=== PATIENT | male | born 1935 | race Caucasian/White ===

== ENCOUNTER 2023-09-10 08:15 | Inpatient (IN) | payer MEDICARE, BC, SELFPAY ==
[2023-09-10] VITALS (23 sets, daily range): BP systolic 25–150; BP diastolic 60–114; BMI 25.6
--- NOTE | 2023-09-10 08:57 | HPS.HSE ---
Addendum entered and electronically signed by Aneta Ventura MD 09/10/23 09:26:
ROS:
patient denies headache, chest pain, shortness of breath. He only complains of mild soreness right groin. No lightheadedness or dizziness. No nausea/vomiting/diarrhea.
Addendum entered and electronically signed by Aneta Ventura MD 09/10/23 09:22:
Constipation
-will treat and order bowel regimen when patient is off bed rest
Original Note:
Family Physician
-
Family Physician: INTERVIEWE UNKNOWN - PT NOT
Chief Complaint
-
transferred from [place] for Pseudoaneurysm
History of Present Illness
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
for further care.
AT [place] patient had PPM placement 09/07/23. When large sheath removed noticed arterial bleeding s/p prolonged compression then C clamp. Ultrasound performed showing large pseudoaneurysm of RFA. IR attempted to close with thrombin injection
but patient had complication of vasovagal event, loss of pulse requiring one minute of CPR. Patient woke up without neurological deficits.
Follow up US on 09/08 showed:
Partial thrombosis of known pseudoaneurysm of the right common femoral artery with residual pseudoaneurysm measuring approximately 1.2 x 0.8 x 0.6 cm compared to approximately 2.0 x 1.2 x 1.6 cm on prior arterial Doppler of September 08, 2023.
Pseudoaneurysm neck measures approximately 0.5cm. Approximately 4.1 x 2.0 x 4.3 cm a complex hematoma along the anterior aspect of pseudoaneurysm.
Post vasovagal event patient had echo: 'Limited study performed for evaluation of pericardial effusion. Examination does not reveal any evidence for significant pericardial effusion.
His Losartan, Atenolol, Eliquis have been held
Labs this AM:
WBC 7.9
Hg 11
PLT 128
INR 1.21
Na 137
K+ 4.4
Cl 105
BUN 28
Cr 1.15
GFT 1.15
Medical History
Past Medical History
Past Medical History: Reports Other ([place], Gout, Afib, sick sinus syndrome now s/p leadless PPM )
Past Surgical History: Reports Other (s/p PPM 09/07/23)
Social History
Tobacco: Former Smoker
Alcohol: Occasional
Family History
Family History: Not pertinent
Allergies / Home Medications
Allergies reflects when Allergies were last updated in [facility].
Home Medications with original date entered in [facility]
Allergy/Medication List:
Allergies
Allergy/AdvReac Type Severity Reaction Status Date / Time
Quinolones Allergy Achilles Verified 09/10/23 08:54
tendonitis
Home Medications
apixaban 5 mg tablet (Eliquis) 5 mg PO BID 09/10/23
atenolol 25 mg tablet 25 mg PO DAILY 09/10/23
famotidine 20 mg tablet (Pepcid AC) 40 mg PO HS 09/10/23
febuxostat 40 mg tablet (Uloric) 40 mg PO HS 09/10/23
hydrochlorothiazide 12.5 mg capsule 6.25 mg PO DAILY 09/10/23
levothyroxine 112 mcg tablet (Synthroid) 112 mcg PO DAILY 09/10/23
losartan 25 mg tablet 25 mg PO DAILY 09/10/23
omeprazole 20 mg capsule,delayed release 20 mg PO DAILY 09/10/23
Review of Systems
-
History Source: Patient
A 12 point ROS was completed and negative except as noted: Yes
Physical Exam
Vital Signs
Vital Signs
Temp Pulse Resp BP Pulse Ox
97.9 F 68 18 150/61 100
09/10/23 08:15 09/10/23 08:30 09/10/23 08:15 09/10/23 08:09 09/10/23 08:15
Physical Exam
General: No Apparent Distress and Conversant
HEENT: PERRLA
Respiratory: Clear; No Wheezes
Cardiac: S1/S2 and Regular Rhythm
GI: Soft and Non Tender
Musculoskeletal: No Edema and Other (right groin hematoma, swelling, no significant tenderness; PT pulse 2+ RLE)
Skin: Warm and Dry; No Rash
Neuro: AO x 3
Psych: Calm
Laboratory Results
-
see HPI
Data Reviewed
-
Diagnostic Radiology: Report Reviewed by me
Lab Data: Labs Reviewed by me
Impression/Plan
-
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
for further care.
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
-direct admit to IVU
-Dr. Conway aware of admission; ordered CT Angio Abdomen/Pelvis with runoff (confirmed order with CT)
-NPO
-hold ROUTE SALES TRAINEE Eliquis
Sick sinus syndrome s/p PPM 09/07/23
Atrial Fibrillation
-monitor in IVU on telemetry
-resume b-gil when OK with cardiology
-holding Eliquis
HTN
-hold ROUTE SALES TRAINEE Losartan and HCTZ for now
hx right Nephrectomy for RCC
CKD stage IIIa
-small bolus pre contrast
-running IVF
GERD
-daily PPI, qhs pepcid
Gout
-ROUTE SALES TRAINEE Febuxostat
DVT PPx - SCD
FULL CODE - confirmed on admission
--- NOTE | 2023-09-10 09:00 | PTCARENOTE ---
Rec'd pt [id number] as a transfer from [facility] s/p Leadless pacemaker placement last , 09/07/23. According to transfer records pt developed a pseudoaneurysm at the insertion site in the R groin. Pt transferred by staff from
stretcher to bed, as pt is bedrest at this time. Pt w/no c/o CP or SOB. Pt did report 2/10 R groin 'tenderness' & 2/10 neck & back pain, which pt reports as chronic for him. VS stable w/HR in the 60's-70's w/admission BP of 150/61. Pt is SR w/freq
PVC's incl bigeminy & occas V pacing on telemetry monitoring. Hospitalist, Dr Ventuar & Vascular surgeon, Dr Conway in to see pt. 250mL NSS IVF bolus administered as ordered & NSS IVF hung as ordered through patent R FA IV line. Pt transported to
urgent CT scan by transport. Report then given to Shameka in the Vascular OR. This RN down to CT scan to assist transport to Vascular OR & bring chart. Plan of care ongoing.
[2023-09-10] MEDS: NSS 250 IV (09:15)
[2023-09-10] MEDS: NSS (PRESERVATIVE FREE) 10 ML IV (09:16)
[2023-09-10] MEDS: PROTONIX IV 40 MG IV (09:16)
[2023-09-10] MEDS: NSS 1000 IV ×2 (09:35→13:33)
--- NOTE | 2023-09-10 10:02 | W.PN.VS ---
Today's Communication / Plan
-
cta
OR
Assessment/Plan
-
right femoral pseudoaneurysm
- cta to confirm location and injury
- plan for OR for repair
- discussed with patient
Subjective Data
-
Date of Service: September 10, 2023
Patient transferred from [place] with Right groin pseudoaneurysm
Injected with thrombin x2 without success
pain in right groin
occurred after leadless pacemaker placement
Objective Data
-
Vital Signs
Temp Pulse Resp BP Pulse Ox
97.9 F 68 18 150/61 100
09/10/23 08:15 09/10/23 08:30 09/10/23 08:15 09/10/23 08:09 09/10/23 08:15
Lab Results
09/10/23 08:31
09/10/23 08:31
Calcium Cancelled 09/10/23 08:31
Magnesium Cancelled 09/10/23 08:31
Physical Exam
-
rrr
ctab
nt,nd,soft
eccymosis right groin
slight tenderness
+ PT pulse
--- NOTE | 2023-09-10 11:30 | CON.INTV ---
Consultation
Consultation Request
Date/Time Consultation Requested: 09-10-23
Date/Time Consultation Performed: 09-10-23
Requesting Provider: Dr Conway
Performing Provider: Dr Wong
Reason for Consultation: s/p repair of R femoral pseudoaneurysm
Medical History
-
Chief Complaint: incisional pain at RLE
History of Present Illness:
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
Seen by Dr Be ([facility] Sx), candidate for vascular repair
Seen at ICU, s/p R femoral vein patch angioplasty, repair of R SFA with primary anastomosis
Mild postop hypotension with MAP 69, mild nausea but no vomit
Dgtr Dr Vann at bedside
Past Medical History
Past Medical History: Other (see A&P for PMH/PSH)
Social History
Tobacco: Former Smoker
Alcohol: Occasional
Drug: None
Personal: Single
Living: With Roomate ([facility])
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
Family History
Family History: Reviewed & Not Pertinent
Allergies / Home Medications
Allergies
Allergy/AdvReac Type Severity Reaction Status Date / Time
Quinolones Allergy Achilles Verified 09/10/23 08:54
tendonitis
Home Medications
�Medication �Instructions �Recorded �Confirmed �Last Taken �Type
apixaban 5 mg tablet (Eliquis) 5 mg PO BID 09/10/23 09/10/23 09/05/23 History
atenolol 25 mg tablet 25 mg PO DAILY 09/10/23 09/10/23 Unknown History
famotidine 20 mg tablet (Pepcid AC) 40 mg PO HS 09/10/23 09/10/23 Unknown History
febuxostat 40 mg tablet (Uloric) 40 mg PO HS 09/10/23 09/10/23 Unknown History
hydrochlorothiazide 12.5 mg capsule 6.25 mg PO DAILY 09/10/23 09/10/23 Unknown History
levothyroxine 112 mcg tablet 112 mcg PO DAILY 09/10/23 09/10/23 Unknown History
(Synthroid)
losartan 25 mg tablet 25 mg PO DAILY 09/10/23 09/10/23 Unknown History
omeprazole 20 mg capsule,delayed 10 mg PO DAILY 09/10/23 09/10/23 Unknown History
release
Review of Systems
-
History Source: Patient
All other systems: Negative unless noted
Constitutional: Fatigue
Cardiac: Other (incisional R groin pain)
Abdomen/GI: Nausea
Neuro: Weakness
Vitals / Labs / Diagnostic Testing
Vital Signs
Temp Pulse Resp BP Pulse Ox
97.9 F 66 18 150/61 100
09/10/23 08:15 09/10/23 10:00 09/10/23 08:15 09/10/23 08:09 09/10/23 08:15
Diagnostic Testing:
Physical Exam
-
HEENT: Normocephalic and Other (somewhat dry oral mucos)
Cardiovascular: Regular Rhythm, Peripheral Edema (n) and JVD (n)
Respiratory: Clear and Non-Labored Respirations
GI: Soft, Non Distended and Non Tender
Neurology: Awake, AO x 3 and No Motor Deficits
Skin: Warm
General: Respiratory Distress (n)
Assessment
-
Assessment:
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 Seen by
[place] ([facility] Sx), taken to OR upon transfer
Impression:
R femoral hematoma and pseudoaneurysm post leadless PPM placement at OSH 05-16
S/p R femoral vein patch angioplasty, repair of R SFA with primary anastomosis
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
HTN
Gout
RCC s/p R nephrectomy
CKD
AFib on apixaban
SSS s/p leadless PPM at OSH 05-16, complicated by hematoma and pseudoaneurysm at R femoral artery
Hypothyroidism
GERD
Remote h/o smoking
Plan:
Postoperative surgical intensive care unit monitoring
Supplemental oxygen as needed
Incentive spirometry
Aspiration precautions
Neuro and vascular checks per protocol
Vascular surgery following-correspondence and operative notes reviewed
ASA, clopidogrel
Mild hypotension upon transfer to ICU, MAP 69
NSS 500 mL IV bolus ordered, will follow response
Continue L-thyroxine
Resume apixaban once OK by Vasc Sx
DVT prophylaxis
Early nutrition
Early mobilization
D/w Dr Ho and his kind daughter Dr Ata Vann ( of Dr Dave Vann)
TT Dr Vann with update
Critical care time: 35 min
[2023-09-10 12:03] LABS: Hematocrit 30.8 % (39.0-52.0); Hemoglobin 10.7 g/dL (13.0-18.0); Mean Corp Hgb Conc. 34.7 g/dL (33.0-37.0); Mean Corpuscular Hgb 29.5 pg (27.0-31.0); Mean Corpuscular Volume 84.8 fL (80.0-94.0); Mean Platelet Volume 11.1 fL (7.4-10.4); Platelet Count 148 10^3/uL (130-400); Red Blood Cell Count 3.63 10^6/uL (4.70-6.10); Red Cell Dist. Width 14.7 % (11.5-14.5); White Blood Cell Count 9.7 10^3/uL (4.8-10.8)
[2023-09-10 12:14] LABS: ALT (SGPT) 16 U/L (0-50); AST (SGOT) 28 U/L (17-59); Alkaline Phosphatase 63 U/L (38-126); Blood Urea Nitrogen 25 mg/dl (9-20); Calcium 8.6 mg/dl (8.4-10.2); Carbon Dioxide 22 mmol/L (22-30); Chloride 108 mmol/L (98-107); Estimated Creatinine Clearance 49 ml/min; Glucose 97 mg/dl (70-99); Potassium 4.2 mmol/L (3.5-5.1); Sodium 137 mmol/L (135-145); Total Bilirubin 0.6 mg/dl (0.2-1.3); Total Protein 5.8 g/dl (6.3-8.2); eGFR > 60.00
--- NOTE | 2023-09-10 12:35 | W.IMMPOSTOP ---
Surgical Immed Post Op Note
-
Primary Surgeon: jessica
Assisting Surgeon: none
Pre-op Diagnosis: r femoral pseudoaneurysm
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
Procedure Performed: r Femoral vein patch angioplasty, repair of R SFA with primary anastamosis
Anesthesia Type: GET
Specimen / Cultures: none
Estimated Blood Loss: 450 ml
Complications: none
Operative Findings: excellent PT and popliteal signal
--- NOTE | 2023-09-10 12:38 | PTCARENOTE ---
Pt to be transferred to ICU post-op. Belongings transferred to room 3363.
--- NOTE | 2023-09-10 12:50 | SUR.PHASEI ---
Received pt from Vascular OR, drowsy but easily arouses to verbal. VPACED in the 60's with occasional PVC's. Sating 100% on 6L Simple mask. Lungs CTA. Abdomen soft. Vascular RN Jazmine at bedside and R groin swollen, soft to palpate and was told
this is how he was pre op and Dr. Conway aware. R groin ASHOK dressing intact and monitor flashing green. R groin EVI drain emptied for dark blood 15ml. R pedal pulse palpable. Sensation intact. L 20 forearm INT intact with normal saline running
through it. L 18 hand flushed and capped. Pt updated with plan of care. Will continue to monitor
--- NOTE | 2023-09-10 14:07 | CON.CAR ---
Consultation
Consultation Request
Date/Time Consultation Requested: September 10, 2023
Date/Time Consultation Performed: September 10, 2023
Requesting Provider: Hospitalist
Performing Provider: Cruz
Reason for Consultation: Sick sinus syndrome A-fib
Medical History
-
Chief Complaint: Transferred from hospital
History of Present Illness:
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
was transferred to [facility] for further care. The majority of this history was obtained through chart review and speaking with other physicians. He had been at [facility] where leadless permanent pacemaker was implanted on
September 07, 2023. When the sheath was removed there was noted to be arterial bleeding and had prolonged compression with the C-clamp. Ultrasound then was performed which showed a large pseudoaneurysm of his RFA. IR attempted to close with a thrombin
injection but he then had vasovagal event with loss of pulse requiring 1 minute of CPR. He awoke without any significant neurological deficits. Follow-up ultrasound showe: partial thrombosis of known pseudoaneurysm of the right common femoral
artery with residual pseudoaneurysm measuring approximately 1.2 x 0.8 x 0.6 cm compared to approximately 2.0 x 1.2 x 1.6 cm on prior arterial Doppler of September 08, 2023. Pseudoaneurysm neck measures approximately 0.5cm. Approximately 4.1 x 2.0 x 4.3
cm a complex hematoma along the anterior aspect of pseudoaneurysm.
He was transferred to [facility] for further management.
Past Medical History
Past Medical History: Other (hypertension, gout, A-fib, sick sinus syndrome status post leadless pacemaker)
Past Surgical History: Other (Right nephrectomy)
Social History
Tobacco: Former Smoker
Alcohol: Occasional
Employment: Employed
Family History
Family History: Reviewed & Not Pertinent
Allergies / Home Medications
Allergy/AdvReac Type Severity Reaction Status Date / Time
Quinolones Allergy Achilles Verified 09/10/23 08:54
tendonitis
�Medication �Instructions �Recorded �Confirmed �Type
apixaban 5 mg tablet (Eliquis) 5 mg PO BID 09/10/23 09/10/23 History
atenolol 25 mg tablet 25 mg PO DAILY 09/10/23 09/10/23 History
famotidine 20 mg tablet (Pepcid AC) 40 mg PO HS 09/10/23 09/10/23 History
febuxostat 40 mg tablet (Uloric) 40 mg PO HS 09/10/23 09/10/23 History
hydrochlorothiazide 12.5 mg capsule 6.25 mg PO DAILY 09/10/23 09/10/23 History
levothyroxine 112 mcg tablet 112 mcg PO DAILY 09/10/23 09/10/23 History
(Synthroid)
losartan 25 mg tablet 25 mg PO DAILY 09/10/23 09/10/23 History
omeprazole 20 mg capsule,delayed 10 mg PO DAILY 09/10/23 09/10/23 History
release
Review of Systems
-
All other systems: Negative unless noted
Physical Exam
Vital Signs
Temp Pulse Resp BP Pulse Ox
97.4 F 60 12 95/69 98
09/10/23 12:45 09/10/23 13:45 09/10/23 13:45 09/10/23 13:45 09/10/23 13:45
Lab Results
09/10/23 11:30
09/10/23 11:30
Physical Exam
General: Well Developed and Well Nourished
HEENT: Normocephalic
Respiratory: Clear and Non Labored Respirations
Cardiac: S1/S2 and Other (no m/r/g)
GI: Soft
Musculoskeletal: No Edema
Skin: Dry
Neuro: Awake, Alert and Oriented
Psych: Calm
Impression / Plan
-
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
was transferred to [facility] for further care. He is now status post right femoral vein patch angioplasty and repair of right superficial femoral artery primary anastomosis.
Pseudoaneurysm status post repair
-Per vascular surgery
-Currently holding Eliquis
Sick sinus syndrome status post pacemaker September 06 and AF
-Holding Eliquis
-Holding atenolol for now given low blood pressure likely reinstate tomorrow
Hypertension
-Hold losartan and HCTZ
CKD stage III AA
History of right nephrectomy
GERD
Gout
Data Reviewed
-
EKG: Tracing Personally Visualized and interpreted (Paced rhythm)
Labs: Labs Reviewed by me
[2023-09-10] MEDS: SYNTHROID 112 MCG PO (16:00)
--- NOTE | 2023-09-10 16:40 | PTCARENOTE ---
pt arrived from PACU at 1400 , awake and alert , V Paced on monitor , BP 91/60 , on 2L NC with sat 100% , R groin picco dressing intact , R DP pulse is palpable , pt R foot pink and warm , R groin hematoma soft and movable , area marked , at 1430 pt
co feeling lightheaded , his blood pressure dropped to 77/56, Dr Wong notified and pt was given a 500ml NSS blolus , his BP up to 109 after NSS given , pt is now up in bed and eating clear liquid dinner, pt daughter and son in law at bedside ,
plan for repeat HH at 1800 , minimal to no complaints of surgical pain
[2023-09-10 18:35] LABS: Hematocrit 31.7 % (39.0-52.0); Hemoglobin 10.6 g/dL (13.0-18.0)
[2023-09-10] MEDS: PEPCID 20 MG PO (21:58)
[2023-09-10] MEDS: MAALOX 30 ML PO (23:34)
[2023-09-11] VITALS (19 sets, daily range): BP systolic 85–141; BP diastolic 61–103; BMI 25.7
[2023-09-11] MEDS: NSS 1000 IV (00:07)
[2023-09-11 04:50] LABS: % Basophils 0.2 % (0-2); % Eosinophils 0.2 % (0-6); % Immature Granulocytes 0.7 % (0-0.5); % Lymphocytes 15.8 % (20.5-51.1); % Monocytes 7.9 % (1.7-9.3); % Neutrophils 75.2 % (42.2-75.2); Absolute Immature Granulocytes 0.1 10^3/uL (0-0.05); Absolute Lymphocytes 2.1 10^3/uL (1.2-3.4); Absolute Neutrophils 9.9 10^3/uL (1.4-6.5); Hematocrit 30.6 % (39.0-52.0); Hemoglobin 10.1 g/dL (13.0-18.0); Mean Corpuscular Hgb 29.4 pg (27.0-31.0); Nucleated Red Blood Cells % 0 % (-); Platelet Count 155 10^3/uL (130-400); Red Blood Cell Count 3.44 10^6/uL (4.70-6.10); Red Cell Dist. Width 14.6 % (11.5-14.5); White Blood Cell Count 13.2 10^3/uL (4.8-10.8)
[2023-09-11 05:04] LABS: APTT 36.8 Sec (23.4-35.0); INR 1.25; PT 15.6 Sec (11.4-14.6)
[2023-09-11 05:17] LABS: Blood Urea Nitrogen 23 mg/dl (9-20); Calcium 8.5 mg/dl (8.4-10.2); Carbon Dioxide 23 mmol/L (22-30); Chloride 106 mmol/L (98-107); Estimated Creatinine Clearance 49 ml/min; Glucose 103 mg/dl (70-99); Magnesium 1.9 mg/dl (1.6-2.3); Potassium 4.9 mmol/L (3.5-5.1); Sodium 137 mmol/L (135-145); eGFR > 60.00
--- NOTE | 2023-09-11 05:19 | PTCARENOTE ---
09/10/23 - received pt from dayshift RN, assessments completed at bedside together. foot cool to touch, positive pedal pulses, groin bruised, edema noted to R upper thigh, no c/o pain, alix dressing running, scant serous drainage at dressing site,
EVI drain has serous drainage,
patient is on clear liquid diet, no issues swallowing, q1 hr vascular checks completed throughout shift, no further needs, all personal belongings with in reach at all times.
09/11/23 - patient remains pain free throughout shift, did request PRN mylanta, patient is now voiding in urinal with out issue, pulses remain palpable, skin still cool but getting warmer to touch, patient remainss on RA at 100%, no increased area
of edema / firmness to R thigh, no increased drainage on dressing to groin,
swellling noted to testicles, elevated in pillowcase sling,
no further needs at this time.
[2023-09-11] MEDS: SYNTHROID 112 MCG PO (05:31)
[2023-09-11] MEDS: MAALOX 30 ML PO (07:04)
--- NOTE | 2023-09-11 07:13 | W.PN.INTV ---
Addendum entered and electronically signed by Sigrid Gama DO 09/11/23 13:05:
Transfer placed to tele
We will sign off at this time, please call with questions
Original Note:
Today's Communication / Plan
Recommendations
Doing well postop, pain control
Monitor of RLE swelling, continue neurovasc checks
PT/OOB
Diet advanced, tolerating
Continue further postop management per team
Can likely transition to tele if ok with surgical service
Assessment
-
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 Seen by Dr
Zoraida ([facility] Sx), taken to OR upon transfer
Impression:
R femoral hematoma and pseudoaneurysm post leadless PPM placement at OSH 05-16
S/p R femoral vein patch angioplasty, repair of R SFA with primary anastomosis 09/10/23
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
HTN
Gout
RCC s/p R nephrectomy
CKD
AFib on apixaban
SSS s/p leadless PPM at OSH 05-16, complicated by hematoma and pseudoaneurysm at R femoral artery
Hypothyroidism
GERD
Remote h/o smoking
Plan
Postoperative surgical intensive care unit monitoring
Supplemental oxygen as needed
Incentive spirometry
Aspiration precautions
Neuro and vascular checks per protocol
RLE thigh swelling
Vascular surgery following-correspondence and operative notes reviewed
ASA, clopidogrel
Mild hypotension upon transfer to ICU, MAP 69
NSS 500 mL IV bolus ordered, will follow response
Off pressors
Continue L-thyroxine
Resume apixaban once OK by Vasc Sx
DVT prophylaxis
Early nutrition
Early mobilization, PT/siting in chair
D/w Dr Ho and his kind daughter Dr Ata Vann ( of Dr Dave Vann)
TT Dr Vann with update
Diagnostic Data
Chest X-Ray:
CT Scan: AP 09/10/23- Pseudoaneurysm arising anteriorly from the proximal right femoral artery. 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
Echo:
PFT's:
Reports and relevant images were personally reviewed.
-----
Critical care time 35 mins -- this includes review of history, physical exam, medications, hemodynamic/ventilator parameters, laboratory data, imaging and discussion with house staff, pharmacy, respiratory therapy, hospital internship, and nursing.
Subjective Dataa
Subjective Data
Date of Service:
Date of Service: September 11, 2023
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
Subjective:
Doing well this AM, no pain complaints
RLE swelling noted
Sitting in chair, no SOB/chest pain
Objective Data
Data Reviewed
Vital Signs / I&O / Oxygen:
Vital Signs
Temp Pulse Resp BP Pulse Ox
98.1 F 69 16 118/83 99
09/11/23 03:30 09/11/23 05:15 09/11/23 05:15 09/11/23 04:00 09/11/23 05:15
Intake and Output
09/10/23 09/11/23 09/12/23
06:59 06:59 06:59
Intake Total 2630 / 2630
Output Total 1325 / 1325
Balance 1305 / 1305
SaO2 99
Nasal Cannula flow liters per 2
minute
Physical Exam
General: Comfortable and Other (NAD)
HEENT: Normocephalic, Anicteric and Moist Mucous Membranes
Cardiovascular: S1-S2, Regular Rhythm and Peripheral Edema (RLE thigh, scrotum)
Respiratory: Clear and Non-Labored Respirations
GI: Soft, Non Distended and Non Tender
Neurology: Awake, Alert, Oriented, AO x 3 and No Motor Deficits
Skin: Warm and Dry
Labs/Micro/Reports
Lab Data
09/11/23 04:35
09/11/23 04:35
Laboratory Results
09/11/23
04:35
PT 15.6 H
INR 1.25
APTT 36.8 H
--- NOTE | 2023-09-11 08:05 | W.PN.CD ---
Today's Communication / Plan
-
Hold atenolol
Hold losartan HCT
Will get ppm interrogated today
Impression / Plan
-
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
was transferred to [facility] for further care. He is now status post right femoral vein patch angioplasty and repair of right superficial femoral artery primary anastomosis.
Pseudoaneurysm status post repair
-Per vascular surgery re when drain comes out and when he may ambulate
-Currently holding Eliquis- resume once vascular surgery allows
- Hgb 10.1 today- stable
Sick sinus syndrome status post pacemaker September 06 and AF
-Holding Eliquis
-Holding atenolol for now - HR in 60s-70s (SR with freq APDs). BP still soft with some readings in 90/60 range. Will resume atenolol once BP allows but not today
- Have asked [facility] to interrogate his PPM today
Hypertension
-Hold losartan and HCTZ
CKD stage III AA
History of right nephrectomy
GERD
Gout
Physical Exam
Vital Signs/Labs
Vital Signs
Temp Pulse Resp BP Pulse Ox
98.1 F 69 16 118/83 99
09/11/23 03:30 09/11/23 05:15 09/11/23 05:15 09/11/23 04:00 09/11/23 05:15
09/10/23 09/11/23 09/12/23
06:59 06:59 06:59
Actual Weight 164 lb 0.383 oz
09/11/23 04:35
09/11/23 04:35
PT 15.6 Sec (11.4-14.6) H 09/11/23 04:35
INR 1.25 09/11/23 04:35
APTT 36.8 Sec (23.4-35.0) H 09/11/23 04:35
Magnesium 1.9 mg/dl (1.6-2.3) 09/11/23 04:35
Physical Exam
Constitutional: No acute distress and Comfortable
EENT: Anicteric
Cardiovascular: Rhythm & rate is regular, Systolic murmur present and S1S2 is normal
Respiratory: Rhonchi Absent
GI: Soft and Non tender
Neuro/Psych: Motor deficits absent
Data Reviewed
-
Date of Service: September 11, 2023
[2023-09-11] MEDS: PLAVIX 75 MG PO (08:09)
[2023-09-11] MEDS: PROTONIX 40 MG PO (08:10)
--- NOTE | 2023-09-11 08:53 | PTCARENOTE ---
Addendum entered by Dorothy Duvall RN 09/11/23 09:19:
prior shift vitals captured. unable to verify accuracy
Addendum entered by Dorothy Duvall RN 09/11/23 09:09:
with leg dependent feet are darker red, refill slower but pulses unchanged
Original Note:
report received, assessments per work list. patient alert and oriented. denies pain. right groin alix dressing in place, area surrounding ecchymotic and soft. soft swelling noted not exceeding area previously marked. alix in place. weak pedal pulses
noted, confirmed with doppler. right foot warmer than left. montor nsr, occasional ventricular pacing with prolonged QT. vascular PAC in to assess. reviewed plan of care. patient assisted to chair. call agosto in reach.
--- NOTE | 2023-09-11 09:11 | W.PN.VS ---
Addendum entered and electronically signed by Chuy Rice III, MD 09/11/23 14:49:
This patient was seen and examined with Aneta Cote PA-C. I agree with the history and physical exam as well as the assessment and plan. I have the following additions:
Doing well overall
Some discomfort at the right groin incision
Ashok dressing intact, right groin
Drain is sanguinous in appearance but low volume
Continue PT/out of bed
Hold anticoagulation for now
Monitor drain output
Call with questions or concerns
Signed:
Chuy Rice III, MD
[facility]
[phone] ([phone])
Original Note:
Today's Communication / Plan
-
- Continue neurovascular checks
- Continue ASHOK dressing
- Monitor EVI output
- Continue to hold eliquis, may resume tomorrow
- D/C IVF
- ADAT
- OOB, PT/OT
- Okay to transfer to 2S
Assessment/Plan
-
88 year old male with R SFA transection with venous fistula following pacemaker placement s/p R femoral vein patch angioplasty, repair of R SFA with primary anastomosis POD1
- Continue neurovascular checks
- Continue ASHOK dressing
- Monitor EVI output
- Continue to hold eliquis, may resume tomorrow
- D/C IVF
- ADAT
- OOB, PT/OT
- Okay to transfer to 2S
Subjective Data
-
Date of Service: September 11, 2023
No acute events overnight. Reports minimal incisional pain. No right foot pain.
Objective Data
-
Vital Signs
Temp Pulse Resp BP Pulse Ox
98.1 F 69 16 118/83 99
09/11/23 03:30 09/11/23 05:15 09/11/23 05:15 09/11/23 04:00 09/11/23 05:15
Intake and Output
09/10/23 09/11/23 09/12/23
06:59 06:59 06:59
Intake Total 2630 / 2710 160 / 160
Output Total 1325 / 1675 550 / 550
Balance 1305 / 1035 -390 / -390
Intake:
Oral fluids 750 / 750
IV fluids (Total) 1380 / 1460 160 / 160
Nss 1,000 ml @ 80 mls/hr IV . 160 / 160
[id number] MARCELINO Rx#:[id number]
normal saline 1380 / 1380
IV piggybacks 500 / 500
Output:
Drain Output (Total) 75 / 75
Right Eleuterio-Rivera 75 / 75
Urine, Voided 750 / 1100 550 / 550
Straight cath output 500 / 500
Lab Results
09/11/23 04:35
09/11/23 04:35
Calcium 8.5 mg/dl (8.4-10.2) 09/11/23 04:35
Magnesium 1.9 mg/dl (1.6-2.3) 09/11/23 04:35
Total Bilirubin 0.6 mg/dl (0.2-1.3) 09/10/23 11:30
AST 28 U/L (17-59) 09/10/23 11:30
ALT 16 U/L (0-50) 09/10/23 11:30
Alkaline Phosphatase 63 U/L (38-126) 09/10/23 11:30
Total Protein 5.8 g/dl (6.3-8.2) L 09/10/23 11:30
Albumin 3.0 g/dl (3.5-5.0) L 09/10/23 11:30
Physical Exam
-
Awake, alert, NAD
Regular rate and rhythm
Nonlabored respirations
Right groin with ASHOK dressing intact. No hematoma.
EVI with serosanguinous output - 75cc/ 24h
Right foot warm, pink, well perfused, sensorimotor intact.
+R DP/PT signals. +L DP/PT signals.
--- NOTE | 2023-09-11 11:12 | CM ---
CM following re: discharge planning.
Discussed in Rounds, reviewed pt's chart, met with pt and spoke to pt's son in law.
Pt is an 88 year old male, admitted with primary dx of POD # 1 s/p Right Femoral vein patch angioplasty, repair of R SFA with primary anastomosis.
Pt reports he lives with SO in a 2SH, 2 steps to enter, has 3 supportive children. 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 Pt stated his daughter lives in [facility] and he is planking to stay
with her for a few days upon the discharge.
CM spoke to pt's daughter Ata [phone] and son in Law and both stated that pt's sig other is not in well health and the pt used to help her. per daughter, she does not it feasible for the pt to continue care for his SO. Pt's daughter stated
she feels that pt should go to a SNF for a short term rehab and CM explained that the pt needs to have skilled needs and it will be based on PT/OT evaluations and recommendations.
Pt's daughter stated that both pt and his SO have [facility] care insurance and CM explained the process to initiate services under guest relations manager care insurance policy.
PT and OT evaluations requested.
PCP: pt stated his friend is his PCP.
D/C plan: per daughter, pt will need a short term rehab. A list of SNFs provided. Awaiting for PT/OT evaluations.
CM will follow with discharge plan updates as hospitalization progresses
[2023-09-11] MEDS: COLACE 100 MG PO ×2 (11:54→20:23)
--- NOTE | 2023-09-11 12:21 | PTCARENOTE ---
patient reassessed. assisted to bathroom with rolling walker. passing flatus, no stool. patient requested Colace. hospitalist updated. orders received. vascular rounding. awaiting orders
--- NOTE | 2023-09-11 12:39 | W.PN.HOSP.TC ---
Today's Communication/Plan
-
Monitor vital signs and see plan
Continue monitor drain output
Resume Eliquis when okay with vascular surgery
Okay to transfer to 2 S per vascular
monitor leukocytosis
on asa and plavix
Assessment / Plan
Assessment / Plan
General: No Apparent Distress and Conversant
HEENT: PERRLA
Respiratory: Clear; No Wheezes
Cardiac: S1/S2 and Regular Rhythm
GI: Soft and Non Tender
Musculoskeletal: No Edema and Other (right groin drain)
Neuro: AO x 3
Psych: Calm
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
overnight came to ICU post OP for monitoring. Doing well post OP. Per vascular surgery okay to transfer to
-Vascular surgery following. Status post right SFA transection with venous fistula. Drain per vascular surgery
-hold OCEAN CLAM BOAT CAPTAIN Eliquis until ok with vascular
Sick sinus syndrome s/p PPM 09/07/23
Atrial Fibrillation
-resume b-gil when OK with cardiology
-holding Eliquis
Suspect anemia 2/2 acute blood loss from pseudoaneurysm
monitor
HTN
-hold OCEAN CLAM BOAT CAPTAIN Losartan and HCTZ for now
hx right Nephrectomy for RCC
CKD stage IIIa
Continue to monitor creatinine
GERD
-daily PPI, qhs pepcid
Gout
-OCEAN CLAM BOAT CAPTAIN Febuxostat
DVT PPx - SCD
FULL CODE - confirmed on admission
I spent a total of 52 minutes with the patient or on the floor. More than 50% of this time involved counseling and coordination of care.
Anticipated Discharge: 24 - 48 hours
Subjective/Interval History
-
Date of Service: September 11, 2023
denies pain
Objective Data
-
Labs:
Laboratory Results
09/11/23
04:35
WBC 13.2 H
Hgb 10.1 L
Hct 30.6 L
Plt Count 155
PT 15.6 H
INR 1.25
APTT 36.8 H
Sodium 137
Potassium 4.9
Chloride 106
Carbon Dioxide 23
BUN 23 H
Creatinine 1.0
Glucose 103 H
Calcium 8.5
Vital Signs:
Vital Signs
Temp Pulse Resp BP Pulse Ox
97.8 F 67 11 117/73 96
09/11/23 12:23 09/11/23 12:30 09/11/23 12:30 09/11/23 12:09 09/11/23 12:23
I&O
09/10/23 09/11/23 09/12/23
06:59 06:59 06:59
Intake Total 2630 / 2710 760 / 760
Output Total 1325 / 1675 780 / 780
Balance 1305 / 1035 -20 / -20
--- NOTE | 2023-09-11 14:43 | PTCARENOTE ---
transfer to [address] [place] [address] without issue
--- NOTE | 2023-09-11 16:00 | PTCARENOTE ---
pt received to 2103 from ICU at 1440. pt arrived via wheelchair-transferred to chair in room w/assist of 1. pt oriented to room, and plan of care with verbalized understanding. telemetry placed reading v-paced in 60's w/prolonged QT. Right groin
inguinal hernia present and soft to palpation. alix drain intact, dressing w/scant old drainage noted. Right groin/upper thigh area w/EVI drain intact-dressing w/small amount of old drainage-EVI output is sanguinous. Right thigh w/+2 edema. Right
foot dusky, cool to touch, + sensation, + capillary refill. pt encouraged to avoid dependant positioning of B/L LE and assisted to return to bed. Dr Rice to evaluate pt t request of pt's daughter. + Doppler pulse to DP and PT right leg. pt
denies pain-c/oo right leg tightness. will observe.
[2023-09-11] MEDS: PEPCID 20 MG PO (21:13)
[2023-09-11] MEDS: NON-FORMULARY ITEM 40 MG PO (21:13)
[2023-09-12] VITALS (8 sets, daily range): BP systolic 119–157; BP diastolic 64–87; PULSE 92; O2SAT 99; BMI 26.4
[2023-09-12] MEDS: SYNTHROID 112 MCG PO (04:22)
[2023-09-12 05:14] LABS: % Basophils 0.3 % (0-2); % Immature Granulocytes 0.9 % (0-0.5); % Monocytes 8.9 % (1.7-9.3); % Neutrophils 68.9 % (42.2-75.2); Absolute Eosinophils 0.3 10^3/uL (0-0.7); Absolute Immature Granulocytes 0.1 10^3/uL (0-0.05); Absolute Lymphocytes 1.4 10^3/uL (1.2-3.4); Absolute Monocytes 0.7 10^3/uL (0.1-0.6); Absolute Neutrophils 5.5 10^3/uL (1.4-6.5); Hematocrit 26.4 % (39.0-52.0); Hemoglobin 9.1 g/dL (13.0-18.0); Mean Corp Hgb Conc. 34.5 g/dL (33.0-37.0); Mean Corpuscular Hgb 29.4 pg (27.0-31.0); Mean Corpuscular Volume 85.2 fL (80.0-94.0); Mean Platelet Volume 11.3 fL (7.4-10.4); Nucleated Red Blood Cells % 0 % (-); Platelet Count 140 10^3/uL (130-400); Red Cell Dist. Width 14.7 % (11.5-14.5)
[2023-09-12 05:42] LABS: ALT (SGPT) 17 U/L (0-50); AST (SGOT) 25 U/L (17-59); Albumin 3.1 g/dl (3.5-5.0); Alkaline Phosphatase 61 U/L (38-126); Blood Urea Nitrogen 28 mg/dl (9-20); Calcium 8.9 mg/dl (8.4-10.2); Carbon Dioxide 20 mmol/L (22-30); Chloride 107 mmol/L (98-107); Estimated Creatinine Clearance 44 ml/min; Glucose 106 mg/dl (70-99); Potassium 4.1 mmol/L (3.5-5.1); Sodium 136 mmol/L (135-145); Total Bilirubin 0.6 mg/dl (0.2-1.3); Total Protein 5.7 g/dl (6.3-8.2); eGFR > 60.00
--- NOTE | 2023-09-12 08:14 | W.PN.VS ---
Addendum entered and electronically signed by Chuy Rice III, MD 09/12/23 16:28:
This patient was seen and examined with LEIDY Daly. I agree with the history and physical exam as well as the assessment and plan.
Signed:
Chuy Rice III, MD
[facility]
[phone] ([phone])
Original Note:
Today's Communication / Plan
-
Seen and assessed with Dr. Rice
Assessment/Plan
-
88 year old male with R SFA transection with venous fistula following pacemaker placement s/p R femoral vein patch angioplasty, repair of R SFA with primary anastomosis POD1
- Continue ASHOK dressing, we will change before discharge
- Resume Eliquis
- OOB, PT/OT
Subjective Data
-
Date of Service: September 12, 2023
Patient seen at bedside this a.m. with Dr. Rice. No complaints at this time patient states he is feeling well. EVI drain intact with 20 cc output overnight
Objective Data
-
Vital Signs
Temp Pulse Resp BP Pulse Ox
98.0 F 81 18 157/84 98
09/12/23 07:15 09/12/23 07:15 09/12/23 07:15 09/12/23 07:15 09/12/23 07:15
Intake and Output
09/11/23 09/12/23 09/13/23
06:59 06:59 06:59
Intake Total 2630 / 2710 2040 / 2040
Output Total 1325 / 1675 810 / 810 30 / 30
Balance 1305 / 1035 1230 / 1230 -30 / -30
Intake:
Oral fluids 750 / 750 1880 / 1880
IV fluids (Total) 1380 / 1460 160 / 160
Nss 1,000 ml @ 80 mls/hr IV . 160 / 160
[id number] MARCELINO Rx#:[id number]
normal saline 1380 / 1380
IV piggybacks 500 / 500
Output:
Drain Output (Total) 75 / 75 60 / 60 30 / 30
Right Eleuterio-Rivera 75 / 75 60 / 60 30 / 30
Urine, Voided 750 / 1100 750 / 750
Straight cath output 500 / 500
Other:
Number of approximated MODERATE 1
amounts of urine
Lab Results
09/12/23 04:25
09/12/23 04:25
Calcium 8.9 mg/dl (8.4-10.2) 09/12/23 04:25
Magnesium 1.9 mg/dl (1.6-2.3) 09/11/23 04:35
Total Bilirubin 0.6 mg/dl (0.2-1.3) 09/12/23 04:25
AST 25 U/L (17-59) 09/12/23 04:25
ALT 17 U/L (0-50) 09/12/23 04:25
Alkaline Phosphatase 61 U/L (38-126) 09/12/23 04:25
Total Protein 5.7 g/dl (6.3-8.2) L 09/12/23 04:25
Albumin 3.1 g/dl (3.5-5.0) L 09/12/23 04:25
Physical Exam
-
AAOx3
No tachypnea
No tachycardia
Abdomen soft
Right groin site Ashok intact, EVI drain with serosanguineous output
Drain removed at bedside, dressing applied
Excellent Doppler signals
--- NOTE | 2023-09-12 08:26 | W.PN.CD ---
Today's Communication / Plan
-
OOB and ambulate if OK from vascular surgery
Resume Eliquis
EKG
Atenolol resume if BP remains OK
Impression / Plan
-
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
was transferred to [facility] for further care. He is now status post right femoral vein patch angioplasty and repair of right superficial femoral artery primary anastomosis.
Pseudoaneurysm status post repair
-Per vascular surgery re when drain comes out and when he may ambulate
-Currently holding Eliquis- resume once vascular surgery allows
- Hgb 9.1 today- down from 10.1
Sick sinus syndrome status post pacemaker September 06 and AF
-Resume Eliquis
-Holding atenolol for now likely resume tomorrow if BP remains OK
- Have asked Granger to interrogate his PPM today
- EKG today
Hypertension
-Hold losartan and HCTZ
CKD stage III AA
History of right nephrectomy
GERD
Gout
Physical Exam
Vital Signs/Labs
Vital Signs
Temp Pulse Resp BP Pulse Ox
98.0 F 81 18 157/84 98
09/12/23 07:15 09/12/23 07:15 09/12/23 07:15 09/12/23 07:15 09/12/23 07:15
09/11/23 09/12/23 09/13/23
06:59 06:59 06:59
Actual Weight 164 lb 0.383 oz 168 lb 8 oz
09/12/23 04:25
09/12/23 04:25
PT 15.6 Sec (11.4-14.6) H 09/11/23 04:35
INR 1.25 09/11/23 04:35
APTT 36.8 Sec (23.4-35.0) H 09/11/23 04:35
Magnesium 1.9 mg/dl (1.6-2.3) 09/11/23 04:35
Physical Exam
Constitutional: No acute distress
EENT: Anicteric
Cardiovascular: Rhythm & rate is regular and Pedal edema is absent
Respiratory: Respiratory effort normal and Lungs clear to auscul.
GI: Soft
Neuro/Psych: AO x 3
Data Reviewed
-
Date of Service: September 12, 2023
EKG: Tracing Personally Visualized and interpreted (sr)
Labs: Labs Reviewed by me
[2023-09-12] MEDS: PLAVIX 75 MG PO (09:11)
[2023-09-12] MEDS: LOW STRENGTH ASPIRIN 81 MG PO (09:11)
[2023-09-12] MEDS: COLACE 100 MG PO ×2 (09:11→20:50)
[2023-09-12] MEDS: PROTONIX 40 MG PO (09:12)
--- NOTE | 2023-09-12 10:56 | CM ---
Patient in bathroom. Patient daughter asking for him to go to SNF; referral requested to [facility] and CM left for admissions. CM will continue to follow for discharge planning needs.
Plan; SNF; [facility] pending bed availability
[2023-09-12 11:05] LABS: Hematocrit 30.6 % (39.0-52.0)
--- NOTE | 2023-09-12 12:08 | W.PN.HOSP.TC ---
Today's Communication/Plan
-
Monitor vital signs and see plan
PT/OT to see today
Atenolol when okay with cardiology
Started Eliquis. Spoke with vascular surgery and will discontinue Plavix. Patient should be on aspirin and Eliquis moving forward
Repeat hemoglobin 10, continue to monitor
Assessment / Plan
Assessment / Plan
General: No Apparent Distress and Conversant
HEENT: PERRLA
Respiratory: Clear; No Wheezes
Cardiac: S1/S2 and Regular Rhythm
GI: Soft and Non Tender
Musculoskeletal: No Edema and Other (right groin drain)
Neuro: AO x 3
Psych: Calm
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
overnight came to ICU post OP for monitoring. Doing well post OP
-Vascular surgery following. Status post right SFA transection with venous fistula. one drain dc'ed 09/11. Continue ASHOK dressing per vascular
Eliquis is okay to start per vascular. Per vascular discontinue Plavix and continue aspirin and Eliquis
Sick sinus syndrome s/p PPM 09/07/23
Atrial Fibrillation, cannot differentiate further
-resume b-gil when OK with cardiology
- Eliquis
Suspect anemia 2/2 acute blood loss from pseudoaneurysm and some hemedilutional
monitor
all other cell lines low too suggest heme dilutional; repeat hgb 10
HTN
-hold EMERGENCY DEPARTMENT AIDE Losartan and HCTZ for now
hx right Nephrectomy for RCC
CKD stage IIIa
Continue to monitor creatinine
GERD
-daily PPI, qhs pepcid
Gout
-EMERGENCY DEPARTMENT AIDE Febuxostat
DVT PPx - eliquis
FULL CODE - confirmed on admission
PT/OT eval
I spent a total of 53 minutes with the patient or on the floor. More than 50% of this time involved counseling and coordination of care.
Anticipated Discharge: Within 24 hours
Subjective/Interval History
-
Date of Service: September 12, 2023
denies nausea
Objective Data
-
Labs:
Laboratory Results
09/12/23 09/12/23
04:25 10:56
WBC 8.0
Hgb 9.1 L 10.0 L
Hct 26.4 L 30.6 L
Plt Count 140
Sodium 136
Potassium 4.1
Chloride 107
Carbon Dioxide 20 L
BUN 28 H
Creatinine 1.1
Glucose 106 H
Calcium 8.9
Total Bilirubin 0.6
AST 25
ALT 17
Alkaline Phosphatase 61
Vital Signs:
Vital Signs
Temp Pulse Resp BP Pulse Ox
97.9 F 85 16 119/79 99
09/12/23 11:00 09/12/23 11:00 09/12/23 11:00 09/12/23 11:00 09/12/23 11:00
I&O
09/11/23 09/12/23 09/13/23
06:59 06:59 06:59
Intake Total 2630 / 2710 2039
Output Total 1325 / 1675 810 / 810
Balance 1305 / 1035 1230 / 1230 -30 / -30
--- NOTE | 2023-09-12 19:59 | PTCARENOTE ---
Upon rounds, instructed by pt that he 'needs a doppler study'. States RLE is more swollen than it has been. +2 pitting RLE. Bilateral LE warm to touch, strong doppler R pedal pulse, weak palpable R pedal pulse. R groin w/ecchymosis. Pt reports
negative Homans signs. 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
To note, pt very anxious upon rounds, reports to RN taking VS, 'I am having a panic attack'. Plan of care ongoing.
[2023-09-12] MEDS: ELIQUIS 5 MG PO (20:50)
--- NOTE | 2023-09-12 21:10 | PTCARENOTE ---
Follow up TT to vascular regarding pt request for U/S. Instructed not urgent, can be done tomorrow. Pt updated on plan of care, questions answered.
[2023-09-12] MEDS: NON-FORMULARY ITEM 40 MG PO (22:14)
[2023-09-12] MEDS: PEPCID 20 MG PO (22:15)
[2023-09-13 03:56] VITALS: BP 115/63
[2023-09-13 05:13] LABS: % Basophils 0.4 % (0-2); % Eosinophils 3.2 % (0-6); % Immature Granulocytes 1.4 % (0-0.5); % Lymphocytes 23.4 % (20.5-51.1); % Monocytes 9.4 % (1.7-9.3); % Neutrophils 62.2 % (42.2-75.2); Absolute Eosinophils 0.3 10^3/uL (0-0.7); Absolute Immature Granulocytes 0.1 10^3/uL (0-0.05); Absolute Monocytes 0.8 10^3/uL (0.1-0.6); Absolute Neutrophils 5.2 10^3/uL (1.4-6.5); Hemoglobin 8.8 g/dL (13.0-18.0); Mean Corp Hgb Conc. 33.8 g/dL (33.0-37.0); Mean Corpuscular Hgb 28.9 pg (27.0-31.0); Mean Corpuscular Volume 85.5 fL (80.0-94.0); Mean Platelet Volume 11.3 fL (7.4-10.4); Nucleated Red Blood Cells % 0 % (-); Platelet Count 140 10^3/uL (130-400); Red Blood Cell Count 3.04 10^6/uL (4.70-6.10); White Blood Cell Count 8.4 10^3/uL (4.8-10.8)
[2023-09-13 05:39] LABS: ALT (SGPT) 16 U/L (0-50); AST (SGOT) 25 U/L (17-59); Alkaline Phosphatase 60 U/L (38-126); Blood Urea Nitrogen 29 mg/dl (9-20); Calcium 8.7 mg/dl (8.4-10.2); Carbon Dioxide 21 mmol/L (22-30); Chloride 107 mmol/L (98-107); Estimated Creatinine Clearance 44 ml/min; Glucose 94 mg/dl (70-99); Potassium 4.2 mmol/L (3.5-5.1); Sodium 137 mmol/L (135-145); Total Bilirubin 0.8 mg/dl (0.2-1.3); Total Protein 5.7 g/dl (6.3-8.2); eGFR > 60.00
[2023-09-13 06:00] VITALS: BMI 26.2
[2023-09-13] MEDS: SYNTHROID 112 MCG PO (06:11)
[2023-09-13 07:48] VITALS: BP 145/70
--- NOTE | 2023-09-13 08:20 | W.PN.CD ---
Today's Communication / Plan
-
resume atenolol
can add back Losartan then HCTZ if needed
trending hgb
I will sign off, please call back with questions
Follow up with typical op cardiology on discharge
Impression / Plan
-
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
was transferred to [facility] for further care. He is now status post right femoral vein patch angioplasty and repair of right superficial femoral artery primary anastomosis.
Pseudoaneurysm status post repair
-Per vascular surgery re when drain comes out and when he may ambulate
-Currently holding Eliquis- resume once vascular surgery allows
- Hgb 9.1 today- down from 10.1, then 8.8 repeat pending later today
Sick sinus syndrome status post pacemaker September 06 and AF
-Resumed Eliquis
-Resume atenolol
-Micra ppm working normally on interrogation
Hypertension
-holding losartan and HCTZ, can be reconsidered if needed in the future
CKD stage III AA
History of right nephrectomy
GERD
Gout
Subjective:
he is feeling well, leg feels tight but no back pain or pain. No cp or dizziness
Physical Exam
Vital Signs/Labs
Vital Signs
Temp Pulse Resp BP Pulse Ox
98.5 F 75 16 145/70 98
09/13/23 07:48 09/13/23 07:48 09/13/23 07:48 09/13/23 07:48 09/13/23 07:48
09/12/23 09/13/23 09/14/23
06:59 06:59 06:59
Actual Weight 76.43 kg 75.705 kg
09/13/23 04:12
09/13/23 04:12
PT 15.6 Sec (11.4-14.6) H 09/11/23 04:35
INR 1.25 09/11/23 04:35
APTT 36.8 Sec (23.4-35.0) H 09/11/23 04:35
Magnesium 1.9 mg/dl (1.6-2.3) 09/11/23 04:35
Physical Exam
Constitutional: No acute distress
Cardiovascular: Rhythm & rate is regular and Pedal edema is absent
Respiratory: Respiratory effort normal, Lungs clear to auscul., Wheeze Absent and Crackles Absent
Neuro/Psych: AO x 3
Other: Cath Site (Rt groin with extensive hematoma)
Data Reviewed
-
Date of Service: September 13, 2023
[2023-09-13] MEDS: TENORMIN 12.5 MG PO (09:01)
[2023-09-13] MEDS: COLACE 100 MG PO ×2 (09:01→21:06)
[2023-09-13] MEDS: ELIQUIS 5 MG PO ×2 (09:02→21:06)
[2023-09-13] MEDS: LOW STRENGTH ASPIRIN 81 MG PO (09:02)
[2023-09-13] MEDS: PROTONIX 40 MG PO (09:02)
[2023-09-13 09:12] LABS: Iron 46 ug/dl (49-181)
[2023-09-13 09:21] LABS: Percent Saturation 15 % (20-50); Total Iron Binding Capacity 299 ug/dl (261-462)
[2023-09-13 10:38] LABS: Ferritin 24.6 ng/ml (17.9-464.0)
[2023-09-13 10:54] LABS: Hematocrit 27.4 % (39.0-52.0); Hemoglobin 9.1 g/dL (13.0-18.0)
[2023-09-13 11:10] LABS: Vitamin B12 213 pg/ml (239-931)
--- NOTE | 2023-09-13 11:10 | CM ---
Patient seen bedside, patient requesting referral sent to [facility] in [place], referral sent in [facility]. CM sent message to liaison at [facility] to see if they can accept patient for SNF, patient with Medicare insurance. CM will continue to
follow for discharge planning needs.
Plan; SNF pending accepting facility, no auth required.
[2023-09-13 11:15] VITALS: BP 129/66
--- NOTE | 2023-09-13 12:17 | W.PN.HOSP.TC ---
Addendum entered and electronically signed by Juan Puga MD 09/13/23 17:36:
Notified by RN the patient is inquiring regarding loading dose of Eliquis. Dr. Long from vascular surgery already spoke with patient and family and it appears that patient bleeding risk is high with loading dose. I spoke with Dr. Long again and is
concerned with loading dose given recent surgery. This does not appear to be Eliquis failure as patient Eliquis was stopped pre and postprocedure. Given these findings, we will consult hematology for further recommendation.
Original Note:
Today's Communication/Plan
-
monitor vitals
see plan
check venous US RLE
laxatives
start IV iron
replete vit b12
pt/ot
atenolol started
Discussed with son in law
Assessment / Plan
Assessment / Plan
General: No Apparent Distress and Conversant
HEENT: PERRLA
Respiratory: Clear; No Wheezes
Cardiac: S1/S2 and Regular Rhythm
GI: Soft and Non Tender
Musculoskeletal: No Edema and Other (right groin drain)
Neuro: AO x 3
Psych: Calm
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
overnight came to ICU post OP for monitoring. Doing well post OP
-Vascular surgery following. Status post right SFA transection with venous fistula. one drain dc'ed 09/11. Continue ASHOK dressing per vascular
Eliquis is okay to start per vascular. Per vascular discontinue Plavix and continue aspirin and Eliquis
venous US RLE for RLE swelling
Sick sinus syndrome s/p PPM 09/07/23
Atrial Fibrillation, cannot differentiate further
atenalol restarted
- Eliquis
Suspect anemia 2/2 acute blood loss from pseudoaneurysm and some hemedilutional
iron deficiency anemia
Vit B12 deficiency
monitor; repeat today 9.1
start IV iron,replete vit b12
HTN
-hold CASE WORK AIDE Losartan and HCTZ for now
hx right Nephrectomy for RCC
CKD stage IIIa
Continue to monitor creatinine
GERD
-daily PPI, qhs pepcid
Gout
-CASE WORK AIDE Febuxostat
DVT PPx - eliquis
FULL CODE - confirmed on admission
PT/OT eval
I spent a total of 52 minutes with the patient or on the floor. More than 50% of this time involved counseling and coordination of care.
Anticipated Discharge: > 48 hours
Subjective/Interval History
-
Date of Service: September 13, 2023
denies pain
Objective Data
-
Labs:
Laboratory Results
09/13/23 09/13/23
04:12 10:45
WBC 8.4
Hgb 8.8 L 9.1 L
Hct 26.0 L 27.4 L
Plt Count 140
Sodium 137
Potassium 4.2
Chloride 107
Carbon Dioxide 21 L
BUN 29 H
Creatinine 1.1
Glucose 94
Calcium 8.7
Total Bilirubin 0.8
AST 25
ALT 16
Alkaline Phosphatase 60
Vital Signs:
Vital Signs
Temp Pulse Resp BP Pulse Ox
97.9 F 72 16 129/66 99
09/13/23 11:15 09/13/23 11:15 09/13/23 11:15 09/13/23 11:15 09/13/23 11:15
I&O
09/12/23 09/13/23 09/14/23
06:59 06:59 06:59
Intake Total 0 / 0 680 / 680
Output Total 810 / 810 30 / 30
Balance 1230 / 1230 650 / 650
--- NOTE | 2023-09-13 12:39 | W.PN.UPDATE ---
Update Note
Progress Note Update
Jackeline dressing changed at bedside, patient tolerated well. Education provided. Follow-up added to discharge instructions.
[2023-09-13] MEDS: VITAMIN B-12 1000 MCG PO (13:14)
[2023-09-13] MEDS: MILK OF MAGNESIA 30 ML PO (13:14)
[2023-09-13] MEDS: FERRLECIT 110 MG IV (13:15)
[2023-09-13] MEDS: FLUSH (NSS) 1 FLUSH IV (13:16)
--- NOTE | 2023-09-13 14:02 | W.PN.UPDATE ---
Update Note
Progress Note Update
Seen and evaluated. Patient's daughter at bedside. Noted swelling in right thigh and calf. Ultrasound demonstrated DVT. On exam his thigh and calf are edematous but soft. Compartments all soft. Compressible. Right groin dressing is clean dry
and intact. Groin is flat. No hematoma. Foot is warm with easily palpable PT pulse. Plan/ Agree with anticoagulation. I do not know that there is a benefit for Eliquis load given he was on Eliquis already. Slightly unclear as to why he
thrombosed while on Eliquis with reasonable vein patch repair, but venous repairs certainly carry risk of thrombosis. Nothing differently I would do except anticoagulation and wrapping of the leg. I am not clear that this is a failure on Eliquis.
Although if felt so, could consider using a different agent such as Xarelto or Coumadin. I do not think an IVC filter is warranted as he can tolerate anticoagulation in general. For this situation would generally recommend 3 to 6 months of
anticoagulation (provoked DVT). However patient is on chronic anticoagulation.
[2023-09-13 15:31] VITALS: BP 98/65
[2023-09-13 19:31] VITALS: BP 126/76
[2023-09-13] MEDS: PEPCID 20 MG PO (21:06)
[2023-09-13] MEDS: NON-FORMULARY ITEM 40 MG PO (21:07)
[2023-09-13 23:56] VITALS: BP 140/75
[2023-09-14] VITALS (7 sets, daily range): BP systolic 121–143; BP diastolic 64–81; PULSE 70; BMI 26.4
[2023-09-14 05:28] LABS: % Basophils 0.4 % (0-2); % Eosinophils 3.1 % (0-6); % Immature Granulocytes 3.6 % (0-0.5); % Lymphocytes 21.1 % (20.5-51.1); % Monocytes 9.7 % (1.7-9.3); % Neutrophils 62.1 % (42.2-75.2); Absolute Eosinophils 0.2 10^3/uL (0-0.7); Absolute Immature Granulocytes 0.3 10^3/uL (0-0.05); Absolute Lymphocytes 1.7 10^3/uL (1.2-3.4); Absolute Monocytes 0.8 10^3/uL (0.1-0.6); Absolute Neutrophils 4.9 10^3/uL (1.4-6.5); Hematocrit 26.6 % (39.0-52.0); Hemoglobin 8.6 g/dL (13.0-18.0); Mean Corp Hgb Conc. 32.3 g/dL (33.0-37.0); Mean Corpuscular Hgb 28.6 pg (27.0-31.0); Mean Corpuscular Volume 88.4 fL (80.0-94.0); Mean Platelet Volume 11.5 fL (7.4-10.4); Nucleated Red Blood Cells % 0.3 % (-); Platelet Count 149 10^3/uL (130-400); Red Blood Cell Count 3.01 10^6/uL (4.70-6.10); Red Cell Dist. Width 15.2 % (11.5-14.5); White Blood Cell Count 7.8 10^3/uL (4.8-10.8)
[2023-09-14 05:54] LABS: Blood Urea Nitrogen 29 mg/dl (9-20); Calcium 8.8 mg/dl (8.4-10.2); Carbon Dioxide 25 mmol/L (22-30); Chloride 105 mmol/L (98-107); Estimated Creatinine Clearance 44 ml/min; Glucose 93 mg/dl (70-99); Potassium 4.3 mmol/L (3.5-5.1); Sodium 137 mmol/L (135-145); eGFR > 60.00
[2023-09-14] MEDS: SYNTHROID 112 MCG PO (06:27)
--- NOTE | 2023-09-14 08:31 | CON.ONC ---
Impression
Impression
Extensive lower extremity PT post thrombin
Pseudoaneurysm requiring vascular intervention
Status post pacemaker procedure complicated by bleed
Hypertension
Atrial fibrillation
Sick sinus syndrome
CKD with solitary kidney
Plan
Plan
Apixaban is 87% bound to protein and has little therapeutic effect when bound to protein
Loading is performed to satisfy protein binding and expedites therapeutic effect with slight increased risk of bleeding
Protein bound apixaban is slowly metabolized and likely present for days to weeks post initial dosing
Patient has had recent bleeding complications is 88y/o with reported CKD and in this clinical circumstance 5 mg twice daily is likely appropriate
As he is clinically improving and has had recent bleeding would continue with the current schedule
Patient History
History of Present Illness
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
with complication of hematoma and pseudoaneurysm right femoral artery transferred to for vascular surgery. At [facility] patient had PPM placement 09/07/23. When large sheath removed noticed arterial bleeding s/p prolonged compression then C
clamp. Ultrasound performed showing large pseudoaneurysm in the RFA. IR attempted to close with thrombin injection but patient had complication of vasovagal event, loss of pulse requiring one minute of CPR. Patient woke up without neurological
deficits. Partial thrombosis of known pseudoaneurysm of the right common femoral artery with residual pseudoaneurysm measuring approximately 1.2 x 0.8 x 0.6 cm compared to approximately 2.0 x 1.2 x 1.6 cm on prior arterial Doppler of September 08, 2023.
Pseudoaneurysm neck measures approximately 0.5cm. Approximately 4.1 x 2.0 x 4.3 cm a complex hematoma along the anterior aspect of pseudoaneurysm. He had been initiated on Eliquis approximately 1 week prior to the procedure without loading 5 mg
twice daily. This dosing was held for 48 hours prior to the procedure. He developed acute right lower extremity swelling with evidence of an extensive DVT of the right leg. Hematology has been asked to ascertain appropriateness of the current 5
mg dosing of Eliquis. Patient reports clinical improvement since initiating Eliquis.
Past-Medical/Surgical History
Past Medical History
Past Medical History: hypertension, gout, A-fib, sick sinus syndrome status post leadless pacemaker
Past Surgical History:Right nephrectomy
Social History
Tobacco: Former Smoker
Alcohol: Occasional
Employment: Employed
Family History
Family History: Reviewed & Not Pertinent
Patient Medication
�Medication �Instructions �Recorded �Confirmed �Last Taken �Type
apixaban 5 mg tablet (Eliquis) 5 mg PO BID Blood Clot 09/10/23 09/10/23 09/05/23 History
Prevention/Tx
atenolol 25 mg tablet 25 mg PO DAILY Blood Pressure 09/10/23 09/10/23 Unknown History
famotidine 20 mg tablet (Pepcid AC) 40 mg PO HS Gastrointestinal Issue 09/10/23 09/10/23 Unknown History
febuxostat 40 mg tablet (Uloric) 40 mg PO HS Gout 09/10/23 09/10/23 Unknown History
hydrochlorothiazide 12.5 mg capsule 6.25 mg PO DAILY Blood Pressure 09/10/23 09/10/23 Unknown History
levothyroxine 112 mcg tablet 112 mcg PO DAILY Thyroid 09/10/23 09/10/23 Unknown History
(Synthroid)
losartan 25 mg tablet 25 mg PO DAILY Blood Pressure 09/10/23 09/10/23 Unknown History
omeprazole 20 mg capsule,delayed 10 mg PO DAILY Gastrointestinal 09/10/23 09/10/23 Unknown History
release Issue
Active Medications
Generic Name Dose Route Start Last Admin
Trade Name Freq PRN Reason Stop Dose Admin
Acetaminophen 650 mg 09/10/23 08:31
Acetaminophen 325 Mg Tablet PO 10/08/23 08:30
Q4HPRN PRN
mild pain/LANDON/temp> 100.4F
Al Hydrox/Mg Hydrox/Simethicone 30 ml 09/10/23 23:14 09/11/23 07:04
Mag/Al/Simethicone Suspension 30 Ml Cup PO 10/08/23 23:13 30 ml
QIDPRN PRN Administration
Gi upset
Apixaban 5 mg 09/12/23 20:00 09/13/23 21:06
Apixaban (Eliquis) 5 Mg Tablet PO 10/10/23 19:59 5 mg
BID MARCELINO Administration
Aspirin 81 mg 09/12/23 08:00 09/13/23 09:02
Aspirin 81 Mg Chewable Tablet PO 10/10/23 07:59 81 mg
DAILY MARCELINO Administration
Atenolol 12.5 mg 09/13/23 09:00 09/13/23 09:01
Atenolol 25 Mg Tablet PO 10/11/23 08:59 12.5 mg
DAILY MARCELINO Administration
Bisacodyl 10 mg 09/10/23 12:36
Bisacodyl 10 Mg Rectal Suppository RECTAL 10/08/23 12:35
DAILYPRN PRN
constipation
Cyanocobalamin 1,000 mcg 09/13/23 13:00 09/13/23 13:14
Cyanocobalamin 1,000 Mcg Tablet PO 10/11/23 12:59 1,000 mcg
DAILY MARCELINO Administration
Docusate Sodium 100 mg 09/11/23 12:00 09/13/23 21:06
Docusate Sodium 100 Mg Capsule PO 10/09/23 11:59 100 mg
BID MARCELINO Administration
Famotidine 20 mg 09/10/23 22:00 09/13/23 21:06
Famotidine 20 Mg Tablet PO 10/08/23 21:59 20 mg
HS MARCELINO Administration
Ferric Sodium Gluconate 110 mls @ 110 mls/hr 09/13/23 14:00 09/13/23 13:15
Complex 125 mg/ Sodium IV 09/17/23 14:59 110 mls
Chloride DAILY@1400 MARCELINO Administration
Levothyroxine Sodium 112 mcg 09/10/23 10:00 09/14/23 06:27
Levothyroxine 112 Mcg Tablet PO 10/08/23 09:59 112 mcg
DAILY @ 0600 MARCELINO Administration
Loratadine 10 mg 09/11/23 14:13
Loratadine 10 Mg Tablet PO 10/09/23 14:12
DAILY PRN
ALLERGIES
Morphine Sulfate 2 mg 09/10/23 12:36
Morphine 2 Mg/Ml Syringe IV 09/24/23 12:35
Q2HPRN PRN
severe pain
Febuxostat (Uloric) 0 mg 09/11/23 22:00 09/13/23 21:07
40 Mg Tablet Po Hs PO 10/09/23 21:59 40 mg
HS MARCELINO Administration
Oxycodone HCl 5 mg 09/10/23 12:36
Oxycodone 5 Mg Regular Release Tablet PO 09/24/23 12:35
Q4HPRN PRN
moderate pain
Pantoprazole Sodium 40 mg 09/11/23 08:00 09/13/23 09:02
Pantoprazole 40 Mg Delayed Release Tablet PO 10/09/23 07:59 40 mg
DAILY MARCELINO Administration
Sodium Chloride 0 flush 09/10/23 10:00 09/13/23 13:16
Sodium Chloride 0.9% (Flush) Syringe IV 10/08/23 09:59 1 flush
PER PROTOCOL MARCELINO Administration
Review of Systems
-
12 point review of systems fails to elicit additional complaints other than those reviewed in the HPI
Physical Exam
-
Physical Exam
General: Well Developed and Well Nourished
HEENT: Normocephalic
Respiratory: Clear and Non Labored Respirations
Cardiac: S1/S2 and Other (no m/r/g)
GI: Soft
Musculoskeletal: No Edema
Skin: Dry
Neuro: Awake, Alert and Oriented
Extremities right lower extremity edematous wrapped with [place] for compression
Psych: Calm
Labs
Lab Results
WBC 7.8 10^3/uL (4.8-10.8) 09/14/23 04:13
RBC 3.01 10^6/uL (4.70-6.10) L 09/14/23 04:13
Hgb 8.6 g/dL (13.0-18.0) L 09/14/23 04:13
Hct 26.6 % (39.0-52.0) L 09/14/23 04:13
MCV 88.4 fL (80.0-94.0) 09/14/23 04:13
MCH 28.6 pg (27.0-31.0) 09/14/23 04:13
MCHC 32.3 g/dL (33.0-37.0) L 09/14/23 04:13
RDW 15.2 % (11.5-14.5) H 09/14/23 04:13
Plt Count 149 10^3/uL (130-400) 09/14/23 04:13
MPV 11.5 fL (7.4-10.4) H 09/14/23 04:13
Abs Immat Gran (auto) 0.3 10^3/uL (0-0.05) H 09/14/23 04:13
Absolute Neuts (auto) 4.9 10^3/uL (1.4-6.5) 09/14/23 04:13
Absolute Lymphs (auto) 1.7 10^3/uL (1.2-3.4) 09/14/23 04:13
Absolute Monos (auto) 0.8 10^3/uL (0.1-0.6) H 09/14/23 04:13
Absolute Eos (auto) 0.2 10^3/uL (0-0.7) 09/14/23 04:13
Absolute Basos (auto) 0.0 10^3/uL (0-0.2) 09/14/23 04:13
Immature Gran % 3.6 % (0-0.5) H 09/14/23 04:13
Neutrophils % 62.1 % (42.2-75.2) 09/14/23 04:13
Lymphocytes % 21.1 % (20.5-51.1) 09/14/23 04:13
Monocytes % 9.7 % (1.7-9.3) H 09/14/23 04:13
Eosinophils % 3.1 % (0-6) 09/14/23 04:13
Basophils % 0.4 % (0-2) 09/14/23 04:13
Creatinine 1.1 mg/dL (0.7-1.3) 09/14/23 04:13
Vital Signs
Vital Signs
Temp Pulse Resp BP Pulse Ox
98.4 F 70 20 142/79 99
09/14/23 02:54 09/14/23 02:54 09/14/23 02:54 09/14/23 02:54 09/14/23 02:54
[2023-09-14] MEDS: VITAMIN B-12 1000 MCG PO (09:10)
[2023-09-14] MEDS: ELIQUIS 5 MG PO ×2 (09:10→21:23)
[2023-09-14] MEDS: PROTONIX 40 MG PO (09:10)
[2023-09-14] MEDS: LOW STRENGTH ASPIRIN 81 MG PO (09:10)
[2023-09-14] MEDS: COLACE 100 MG PO ×2 (09:10→21:23)
[2023-09-14] MEDS: TENORMIN 12.5 MG PO (09:10)
--- NOTE | 2023-09-14 12:14 | W.PN.HOSP.TC ---
Today's Communication/Plan
-
monitor vitals
see plan
cw atenolol
pt/ot
monitor RLE as has DVT
cw eliquis at current dose
dc planning
Assessment / Plan
Assessment / Plan
General: No Apparent Distress and Conversant
HEENT: PERRLA
Respiratory: Clear; No Wheezes
Cardiac: S1/S2 and Regular Rhythm
GI: Soft and Non Tender
Musculoskeletal: RLE edema
Neuro: AO x 3
Psych: Calm
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
overnight came to ICU post OP for monitoring. Doing well post OP
-Vascular surgery following. Status post right SFA transection with venous fistula. one drain dc'ed 09/11. Continue ASHOK dressing per vascular
Eliquis is okay to start per vascular. Per vascular discontinue Plavix and continue aspirin and Eliquis
venous US RLE for RLE with acute extensive DVT. there was a question regarding loading elqiuis dose again however per hematology 5mg BID is adequate especially given recent surgery and bleeding.
Sick sinus syndrome s/p PPM 09/07/23
Atrial Fibrillation, cannot differentiate further
atenolol restarted
- Eliquis
Suspect anemia 2/2 acute blood loss from pseudoaneurysm and some hemedilutional
iron deficiency anemia
Vit B12 deficiency
monitor; hgb today 8.6
cw IV iron,replete vit b12
Constipation
laxatives
resolved
HTN
-hold MA[employer] BAKER Losartan and HCTZ for now
hx right Nephrectomy for RCC
CKD stage IIIa
Continue to monitor creatinine
GERD
-daily PPI, qhs pepcid
Gout
-MASTER BAKER Febuxostat
DVT PPx - eliquis
FULL CODE - confirmed on admission
PT/OT eval now rec Home; per patient he likely going to stay with his daughter
I spent a total of 51 minutes with the patient or on the floor. More than 50% of this time involved counseling and coordination of care.
Anticipated Discharge: Within 24 hours
Subjective/Interval History
-
Date of Service: September 14, 2023
denies pain
Objective Data
-
Labs:
Laboratory Results
09/14/23
04:13
WBC 7.8
Hgb 8.6 L
Hct 26.6 L
Plt Count 149
Sodium 137
Potassium 4.3
Chloride 105
Carbon Dioxide 25
BUN 29 H
Creatinine 1.1
Glucose 93
Calcium 8.8
Vital Signs:
Vital Signs
Temp Pulse Resp BP Pulse Ox
98.4 F 66 20 123/64 98
09/14/23 11:51 09/14/23 11:51 09/14/23 02:54 09/14/23 11:51 09/14/23 11:51
I&O
09/13/23 09/14/23 09/15/23
06:59 06:59 06:59
Intake Total 680 / 680 2029
Output Total 30 / 30
Balance 650 / 650 2029
[2023-09-14] MEDS: FERRLECIT 110 MG IV (13:38)
--- NOTE | 2023-09-14 14:31 | CM ---
CM following re: discharge planning.
Reviewed pt's chart, met with pt, spoke to pt's daughter and son in law over the phone to update on discharge plan progress.
CM received a few phone call from [facility] with a request that pt can be admitted only today and they will not have a bed available tomorrow.
According to MD, pt is not medically stable to be discharged today.
PT and OT updated evaluation noted - home PT recommended. per daughter, pt will be discharged to her house at [address] [place] [address], [facility] [id number]. Per family request, [facility] referred [facility]
D/C plan: home to daughter's house with [facility] and family support. Family to transport at discharge.
CM will follow with discharge plan updates as hospitalization progresses
--- NOTE | 2023-09-14 16:28 | VNURNOTE ---
Home Health Liaison met with patient at 1530 to discuss [facility] nurse/therapy, visits, schedule and homebound status. Patient is reluctant but agreeable and understands that visits at home will be 2-3 x per week to assess and teach medical management.
[facility] contact information provided. Patient is aware that [facility] will contact him for start of care in 1-2 days after discharge from .
[facility] referral completed in [facility].
[2023-09-14 20:14] LABS: Hematocrit 28.3 % (39.0-52.0); Hemoglobin 9.6 g/dL (13.0-18.0)
[2023-09-14] MEDS: NON-FORMULARY ITEM 40 MG PO (21:23)
[2023-09-14] MEDS: PEPCID 20 MG PO (21:24)
[2023-09-15] VITALS (11 sets, daily range): BP systolic 110–160; BP diastolic 59–88
[2023-09-15 00:07] LABS: Transferrin 216 mg/dL (200-360)
[2023-09-15] MEDS: SYNTHROID 112 MCG PO (03:50)
[2023-09-15 05:21] LABS: % Basophils 0.3 % (0-2); % Eosinophils 4.2 % (0-6); % Immature Granulocytes 4.2 % (0-0.5); % Lymphocytes 23.7 % (20.5-51.1); % Monocytes 8.8 % (1.7-9.3); % Neutrophils 58.8 % (42.2-75.2); Absolute Eosinophils 0.4 10^3/uL (0-0.7); Absolute Immature Granulocytes 0.4 10^3/uL (0-0.05); Absolute Lymphocytes 2.1 10^3/uL (1.2-3.4); Absolute Monocytes 0.8 10^3/uL (0.1-0.6); Absolute Neutrophils 5.3 10^3/uL (1.4-6.5); Hematocrit 26.2 % (39.0-52.0); Hemoglobin 8.9 g/dL (13.0-18.0); Mean Corpuscular Hgb 29.6 pg (27.0-31.0); Mean Platelet Volume 11.1 fL (7.4-10.4); Nucleated Red Blood Cells % 0.2 % (-); Platelet Count 186 10^3/uL (130-400); Red Blood Cell Count 3.01 10^6/uL (4.70-6.10); Red Cell Dist. Width 15.7 % (11.5-14.5)
[2023-09-15 05:44] LABS: Blood Urea Nitrogen 29 mg/dl (9-20); Calcium 8.9 mg/dl (8.4-10.2); Carbon Dioxide 26 mmol/L (22-30); Chloride 105 mmol/L (98-107); Estimated Creatinine Clearance 44 ml/min; Glucose 96 mg/dl (70-99); Potassium 4.3 mmol/L (3.5-5.1); Sodium 138 mmol/L (135-145); eGFR > 60.00
[2023-09-15] MEDS: COLACE 100 MG PO ×2 (08:55→20:26)
[2023-09-15] MEDS: PROTONIX 40 MG PO (08:55)
[2023-09-15] MEDS: LOW STRENGTH ASPIRIN 81 MG PO (08:55)
[2023-09-15] MEDS: VITAMIN B-12 1000 MCG PO (08:55)
[2023-09-15] MEDS: TENORMIN 12.5 MG PO (08:55)
[2023-09-15] MEDS: ELIQUIS 5 MG PO ×2 (08:56→20:26)
--- NOTE | 2023-09-15 11:31 | W.PN.HOSP.TC ---
Today's Communication/Plan
-
monitor vitals
see plan
transfuse 1 unit prbc and monitor
monitor hgb
pt/ot
IV iron
cw eliquis
potential dc in next 24hrs
Discussed with son-in-law and daughter over the phone
Assessment / Plan
Assessment / Plan
General: No Apparent Distress and Conversant
HEENT: PERRLA
Respiratory: Clear; No Wheezes
Cardiac: S1/S2 and Regular Rhythm
GI: Soft and Non Tender
Musculoskeletal: RLE edema
Neuro: AO x 3
Psych: Calm
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
overnight came to ICU post OP for monitoring. Doing well post OP and is now on floors
-Vascular surgery following. Status post right SFA transection with venous fistula. one drain dc'ed 09/11.
Eliquis is okay to start per vascular. Per vascular discontinue Plavix and continue aspirin and Eliquis
venous US RLE for RLE with acute extensive DVT. there was a question regarding loading elqiuis dose again however per hematology 5mg BID is adequate especially given recent surgery and bleeding.
Sick sinus syndrome s/p PPM 09/07/23
Atrial Fibrillation, cannot differentiate further
atenolol restarted
- Eliquis
Suspect anemia 2/2 acute blood loss from pseudoaneurysm and some hemedilutional
iron deficiency anemia
Vit B12 deficiency
monitor; hgb today 8.9; Given his recent cardiac surgery,recent bleeding,DVT on eliquis; discussed with daughter and patient would benefit from 1 unit prbc. blood consented and in chart.
cw IV iron,replete vit b12
Constipation
laxatives
resolved
HTN
-hold DRIER UNLOADER Losartan and HCTZ for now
hx right Nephrectomy for RCC
CKD stage IIIa
Continue to monitor creatinine
GERD
-daily PPI, qhs pepcid
Gout
-DRIER UNLOADER Febuxostat
DVT PPx - eliquis
FULL CODE - confirmed on admission
PT/OT otto now rec Home; per patient he likely going to stay with his daughter
I spent a total of 52 minutes with the patient or on the floor. More than 50% of this time involved counseling and coordination of care.
Anticipated Discharge: Within 24 hours
Subjective/Interval History
-
Date of Service: September 15, 2023
denies nausea
Objective Data
-
Labs:
Laboratory Results
09/15/23 09/15/23
04:22 04:23
WBC 9.0
Hgb 8.9 L
Hct 26.2 L
Plt Count 186 D
Sodium 138
Potassium 4.3
Chloride 105
Carbon Dioxide 26
BUN 29 H
Creatinine 1.1
Glucose 96
Calcium 8.9
Vital Signs:
Vital Signs
Temp Pulse Resp BP Pulse Ox
97.9 F 59 18 123/70 100
09/15/23 11:00 09/15/23 11:00 09/15/23 11:00 09/15/23 11:00 09/15/23 11:00
I&O
09/14/23 09/15/23 09/16/23
06:59 06:59 06:59
Intake Total 2029 860 / 860
Balance 2029 860 / 860
[2023-09-15] MEDS: FERRLECIT 110 MG IV (15:17)
[2023-09-15] MEDS: PEPCID 20 MG PO (20:27)
[2023-09-15] MEDS: NON-FORMULARY ITEM 40 MG PO (20:28)
[2023-09-16 03:01] VITALS: BP 130/78
--- NOTE | 2023-09-16 04:41 | PTCARENOTE ---
Pt had 12 beat run of rapid afib. Asymptomatic. See strip in chart. House THEATRICAL [employer]ESSER notified. Mag added to am labs
[2023-09-16 05:23] LABS: % Basophils 0.4 % (0-2); % Eosinophils 3.4 % (0-6); % Lymphocytes 20.5 % (20.5-51.1); % Neutrophils 59.7 % (42.2-75.2); Absolute Eosinophils 0.3 10^3/uL (0-0.7); Absolute Immature Granulocytes 0.5 10^3/uL (0-0.05); Absolute Lymphocytes 1.6 10^3/uL (1.2-3.4); Absolute Monocytes 0.8 10^3/uL (0.1-0.6); Absolute Neutrophils 4.6 10^3/uL (1.4-6.5); Hemoglobin 9.5 g/dL (13.0-18.0); Mean Corp Hgb Conc. 33.9 g/dL (33.0-37.0); Mean Corpuscular Hgb 29.2 pg (27.0-31.0); Mean Corpuscular Volume 86.2 fL (80.0-94.0); Mean Platelet Volume 10.9 fL (7.4-10.4); Nucleated Red Blood Cells % 0.3 % (-); Platelet Count 197 10^3/uL (130-400); Red Blood Cell Count 3.25 10^6/uL (4.70-6.10); Red Cell Dist. Width 16.5 % (11.5-14.5); White Blood Cell Count 7.7 10^3/uL (4.8-10.8)
[2023-09-16] MEDS: SYNTHROID 112 MCG PO (05:30)
[2023-09-16 05:45] LABS: Blood Urea Nitrogen 29 mg/dl (9-20); Calcium 8.6 mg/dl (8.4-10.2); Carbon Dioxide 26 mmol/L (22-30); Chloride 107 mmol/L (98-107); Estimated Creatinine Clearance 44 ml/min; Glucose 97 mg/dl (70-99); Magnesium 2.1 mg/dl (1.6-2.3); Potassium 4.2 mmol/L (3.5-5.1); Sodium 137 mmol/L (135-145); eGFR > 60.00
[2023-09-16 07:10] VITALS: BP 148/79
[2023-09-16] MEDS: PROTONIX 40 MG PO (09:03)
[2023-09-16] MEDS: TENORMIN 12.5 MG PO (09:03)
[2023-09-16] MEDS: VITAMIN B-12 1000 MCG PO (09:04)
[2023-09-16] MEDS: LOW STRENGTH ASPIRIN 81 MG PO (09:04)
[2023-09-16] MEDS: COLACE 100 MG PO (09:04)
[2023-09-16] MEDS: ELIQUIS 5 MG PO (09:04)
[2023-09-16] MEDS: COZAAR 25 MG PO (09:07)
[2023-09-16 11:19] VITALS: BP 133/68
--- NOTE | 2023-09-16 11:42 | W.PN.HOSP.TC ---
Today's Communication/Plan
-
Monitor vital sign closely plan
Patient is now feeling better, discharge today
Daughter updated over the phone
Restart losartan
Continue with atenolol
Continue to hold hydrochlorothiazide on discharge
Time of discharge 38 minutes
Assessment / Plan
Assessment / Plan
General: No Apparent Distress and Conversant
HEENT: PERRLA
Respiratory: Clear; No Wheezes
Cardiac: S1/S2 and Regular Rhythm
GI: Soft and Non Tender
Musculoskeletal: RLE edema
Neuro: AO x 3
Psych: Calm
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
overnight came to ICU post OP for monitoring. Doing well post OP and is now on floors
-Vascular surgery following. Status post right SFA transection with venous fistula. one drain dc'ed 09/11.
Eliquis is okay to start per vascular. Per vascular discontinue Plavix and continue aspirin and Eliquis
venous US RLE for RLE with acute extensive DVT. there was a question regarding loading elqiuis dose again however per hematology 5mg BID is adequate especially given recent surgery and bleeding.
Sick sinus syndrome s/p PPM 09/07/23
Atrial Fibrillation, cannot differentiate further
atenolol restarted
- Eliquis
Suspect anemia 2/2 acute blood loss from pseudoaneurysm and some hemedilutional
iron deficiency anemia
Vit B12 deficiency
monitor; status post 1 unit PRBC 09/14; hemoglobin now 9.5. given his recent cardiac surgery,recent bleeding,DVT on eliquis; discussed with daughter and patient would benefit from 1 unit prbc. blood consented and in chart.
cw IV iron,replete vit b12
Constipation
laxatives
resolved
HTN
-hold [employer] HCTZ for now
Restart losartan
hx right Nephrectomy for RCC
CKD stage IIIa
Continue to monitor creatinine
GERD
-daily PPI, qhs pepcid
Gout
-[employer] Febuxostat
DVT PPx - eliquis
FULL CODE - confirmed on admission
PT/OT eval now rec Home; per patient he likely going to stay with his daughter
Anticipated Discharge: Today
Subjective/Interval History
-
Date of Service: September 16, 2023
Denies pain
Objective Data
-
Labs:
Laboratory Results
09/16/23
04:19
WBC 7.7
Hgb 9.5 L
Hct 28.0 L
Plt Count 197
Sodium 137
Potassium 4.2
Chloride 107
Carbon Dioxide 26
BUN 29 H
Creatinine 1.1
Glucose 97
Calcium 8.6
Vital Signs:
Vital Signs
Temp Pulse Resp BP Pulse Ox
98.4 F 60 18 133/68 99
09/16/23 11:19 09/16/23 11:19 09/16/23 11:19 09/16/23 11:19 09/16/23 11:19
I&O
09/15/23 09/16/23 09/17/23
06:59 06:59 06:59
Intake Total 860 / 860 1430 / 1430
Balance 860 / 860 1430 / 1430
--- NOTE | 2023-09-16 12:06 | W.DCSUMMARY ---
Discharge Summary
Discharge Data
Date of Admission: 09/10/23
Date of Discharge: 09/16/23
-
Pending Results: No
Hospital Course
88-year-old male with past medical history of hypertension, right nephrectomy for renal cell carcinoma, CKD stage III, GERD, gout, sick sinus syndrome status post recent pacemaker came to the hospital as a transfer from outside hospital for
pseudoaneurysm post femoral sheath removal for leadless pacemaker. Patient initially went to the ICU for monitoring. Patient was seen by vascular surgery who performed right SFA transection with venous fistula. Initially patient had a drain which
was discontinued. Patient was also seen by cardiology throughout hospitalization. For patient's procedure and bleeding Eliquis was initially held. Once patient was stable from vascular standpoint, vascular surgery recommended to continue aspirin
and Eliquis and discontinue Plavix. Patient hospital course was complicated with right lower extremity swelling where venous Doppler was done and it showed extensive DVT. On this hospitalization patient also had persistent anemia which was likely
thought was secondary to acute blood loss from pseudoaneurysm. Patient was deficient in vitamin B12 and iron on labs and was started on repletion. Given persistent anemia and recent bleeding along with surgery, patient received 1 unit of blood
transfusion on 09/14. On the day of discharge his hemoglobin was improved to 9.5. He was instructed to get a repeat CBC done outpatient. For his blood pressure he was slowly started on his home medications however hydrochlorothiazide was still
held prior to discharge. He was instructed to follow-up and to restart hydrochlorothiazide once his blood pressure continued to increase. He was also evaluated by physical therapy who recommended home health. Once his anemia and bleeding improved
and he was able to ambulate, he was then discharged with instructions to follow-up with all his physicians outpatient.
Discharge Plan
-
Patient Disposition: Home with Home Care
Discharge Diagnosis/Procedures: Pseudoaneurysm post femoral sheath removal for Leadless PPM status post right SFA transection with venous fistula
Sick sinus syndrome status post pacemaker
Anemia secondary to acute blood loss from pseudoaneurysm and iron deficiency
Vitamin B12 deficiency
Constipation
Hypertension
Diet: As tolerated
Activity: As tolerated
Driving Restrictions: As prior to admission
Bathing Restrictions: None
Blood Work: CBC late next week with PCP
Activity Restrictions/Additional Instructions:
Please obtain a Primary Care Provider BINA*
The white ASHOK dressing on the groin site can be peeled off and removed on 09/16. you may throw the dressing and battery pack away.
Until removal you may disconnect at hub closest to your body to shower and re-connect after shower
The battery pack will vibrate and blink different colors, this is normal.
If the dressing becomes saturated or peels away before removal date that is ok, you may remove it at that time.
After removal if you would like to cover the site with gauze you may, change this daily. You also may leave open to air.
DO NOT SOAK incision. Showering is fine but no standing water(tub/pool).
Keep this incision as dry as you can when not showering.
Referrals:
Pieter Monaco, DO [Active] -
UNKNOWN - PT NOT,INTERVIEWE [Family Provider] - in less than 1 week
Mitra Arriaza CRNP [Specified Professional Personl] - 09/28/23 9:45 am
Prescriptions:
New
docusate sodium 100 mg Capsule
100 mg PO BID Qty: 0 0RF
aspirin [Children's Aspirin] 81 mg Tablet,Chewable
81 mg PO DAILY Qty: 30 0RF
acetaminophen 325 mg Tablet
650 mg PO Q4HPRN PRN (Reason: mild pain/LANDON/temp> 100.4F) Qty: 0 0RF
atenolol 25 mg Tablet
12.5 mg PO DAILY Qty: 30 0RF
pantoprazole 40 mg Tablet,Delayed Release (Dr/Ec)
40 mg PO DAILY Qty: 30 0RF
cyanocobalamin (vitamin B-12) 1,000 mcg Tablet
1,000 mcg PO DAILY Qty: 30 0RF
ferrous sulfate 324 mg (65 mg iron) tablet,delayed release (DR/EC)
324 mg PO DAILY Qty: 30 0RF
Continued
famotidine [Pepcid AC] 20 mg Tablet
40 mg PO HS
levothyroxine [Synthroid] 112 mcg Tablet
112 mcg PO DAILY
febuxostat [Uloric] 40 mg Tablet
40 mg PO HS
Eliquis 5 mg Tablet
5 mg PO BID
losartan 25 mg Tablet
25 mg PO DAILY
Held
hydrochlorothiazide 12.5 mg Capsule
6.25 mg PO DAILY
Hold Instructions: Restart when blood pressure greater than 140/90
Discontinued
omeprazole 20 mg Capsule,Delayed Release(Dr/Ec)
10 mg PO DAILY
atenolol 25 mg Tablet
25 mg PO DAILY
Discharge Orders:
Discharge Patient (As Directed); Ordered 09/16/23
Ordered By: Juan Puga
Discharge Date and Time
Discharge Date/Time: 09/16/23 14:33
Print Language: BHUTANESE
[2023-09-16] MEDS: FERRLECIT IV (14:07)
--- NOTE | 2023-09-16 15:55 | CM ---
patient is feeling better and stable for discharge home with [facility].[email or web address] signed im [email or web address] to transport home to daughter's home.
== END 2023-09-16 14:33 | disposition home health service (06) | DRG 253 ==
LOC: 2 SOUTH 08:15
PROVIDERS: Anesthesiology; Nurse Practitioner Gerontology; Surgery; ADMITTING PHYSICIAN Student in an Organized Health Care Education/Training Program; ATTENDING PHYSICIAN Internal Medicine; CONSULT PHYSICIAN Internal Medicine Hematology & Oncology; OTHER PHYSICIAN Internal Medicine Cardiovascular Disease; OTHER PHYSICIAN Internal Medicine Pulmonary Disease
PROC: 04BK0ZZ Excision of Right Femoral Artery, Open Approach (ICD-10-PCS; 2023-09-11)
PROC: 04UK0KZ Supplement Right Femoral Artery with Nonautologous Tissue Substitute, Open Approach (ICD-10-PCS; 2023-09-11)
PROC: 30233N1 Transfusion of Nonautologous Red Blood Cells into Peripheral Vein, Percutaneous Approach (ICD-10-PCS; 2023-09-15)
DX: T81.718A Complication of other artery following a procedure, not elsewhere classified, initial encounter (principal); D62 Acute posthemorrhagic anemia; I31.39 Other pericardial effusion (noninflammatory); I74.3 Embolism and thrombosis of arteries of the lower extremities; I97.638 Postprocedural hematoma of a circulatory system organ or structure following other circulatory system procedure; T82.817A Embolism due to cardiac prosthetic devices, implants and grafts, initial encounter; I82.411 Acute embolism and thrombosis of right femoral vein; I82.431 Acute embolism and thrombosis of right popliteal vein; I82.451 Acute embolism and thrombosis of right peroneal vein; I72.4 Aneurysm of artery of lower extremity; I12.9 Hypertensive chronic kidney disease with stage 1 through stage 4 chronic kidney disease, or unspecified chronic kidney disease; N18.31 Chronic kidney disease, stage 3a; M10.9 Gout, unspecified; I49.5 Sick sinus syndrome; I95.81 Postprocedural hypotension; R11.0 Nausea; Y83.8 Other surgical procedures as the cause of abnormal reaction of the patient, or of later complication, without mention of misadventure at the time of the procedure; Y71.2 Prosthetic and other implants, materials and accessory cardiovascular devices associated with adverse incidents; E53.8 Deficiency of other specified B group vitamins; D50.9 Iron deficiency anemia, unspecified; Y92.239 Unspecified place in hospital as the place of occurrence of the external cause; E03.9 Hypothyroidism, unspecified; K59.00 Constipation, unspecified; I48.91 Unspecified atrial fibrillation; K21.9 Gastro-esophageal reflux disease without esophagitis; Z79.01 Long term (current) use of anticoagulants; Z87.891 Personal history of nicotine dependence; Z95.0 Presence of cardiac pacemaker; Z88.1 Allergy status to other antibiotic agents; Z79.890 Hormone replacement therapy; Z90.5 Acquired absence of kidney; Z85.528 Personal history of other malignant neoplasm of kidney
CPT/HCPCS: 35141; 35685; 75635; 80048; 80053; 82607; 82728; 82746; 83540; 83550; 83735; 84466; 85014; 85018; 85025; 85027; 85610; 85730; 86850; 86900; 86901; 86920; 87070; 93005; 93971; 97116; 97162; 97167; C1757; J2916; P9016; Q9967

== ENCOUNTER → 2023-09-22 11:19 | Outpatient (REF) | payer MEDICARE, BC, SELFPAY ==
[2023-09-22 12:11] LABS: Hematocrit 32.7 % (39.0-52.0); Hemoglobin 10.7 g/dL (13.0-18.0); Mean Corp Hgb Conc. 32.7 g/dL (33.0-37.0); Mean Corpuscular Hgb 29.9 pg (27.0-31.0); Mean Corpuscular Volume 91.3 fL (80.0-94.0); Mean Platelet Volume 10.7 fL (7.4-10.4); Platelet Count 248 10^3/uL (130-400); Red Blood Cell Count 3.58 10^6/uL (4.70-6.10); Red Cell Dist. Width 17.5 % (11.5-14.5); White Blood Cell Count 8.3 10^3/uL (4.8-10.8)
[2023-09-22 12:40] LABS: Blood Urea Nitrogen 25 mg/dl (9-20); Calcium 8.9 mg/dl (8.4-10.2); Carbon Dioxide 24 mmol/L (22-30); Chloride 105 mmol/L (98-107); Glucose 101 mg/dl (70-99); Potassium 4.8 mmol/L (3.5-5.1); Sodium 139 mmol/L (135-145); eGFR 58.53
[2023-09-22 13:30] LABS: Absolute Neutrophils -Man Diff 4.8 10^3/uL (1.4-6.5); Band Neutrophils 1 % (0-3); Eosinophils 5 % (0-6); Lymphocytes 23 % (20-51); Metamyelocytes 2 % (-); Monocytes 10 % (2-9); Myelocytes 1 % (-); Normal RBC Morphology Yes; Platelets Checked Yes; Segmented Neutrophils 57 % (42-75)
[2023-09-22 13:31] LABS: Total Cells Counted 100
== END ==
LOC: REG 11:19
PROVIDERS: ATTENDING PHYSICIAN Radiology Diagnostic Radiology; OTHER PHYSICIAN Internal Medicine Cardiovascular Disease; OTHER PHYSICIAN Surgery Vascular Surgery
DX: Z98.890 Other specified postprocedural states (principal); D62 Acute posthemorrhagic anemia
CPT/HCPCS: 36415; 80048; 85027

== ENCOUNTER → 2024-01-22 09:29 | Outpatient (REF) | payer MEDICARE, BC, SELFPAY | LOC: RAD 09:29 | PROVIDERS: ATTENDING PHYSICIAN Surgery Vascular Surgery | DX: R22.41 Localized swelling, mass and lump, right lower limb (principal) | CPT/HCPCS: 93922; 93925; 93971 ==

== ENCOUNTER → 2025-02-03 11:18 | Outpatient (REF) | payer MEDICARE, BC, SELFPAY | LOC: RAD 11:18 | PROVIDERS: ATTENDING PHYSICIAN Surgery Vascular Surgery | DX: S75.001D Unspecified injury of femoral artery, right leg, subsequent encounter (principal); M79.651 Pain in right thigh | CPT/HCPCS: 93922; 93971 ==